=== PATIENT | male | born 1960 | race African-American/Black ===

== ENCOUNTER 2017-01-14 10:57 | Inpatient (IN) ==
[2017-01-14] MEDS ORDERED: 0.9 % Sodium Chloride 1,000 ML ONE (11:35)
--- NOTE | 2017-01-14 12:10 | Emergency Department Note ---
Disposition Clinical Impression: Cough, End stage renal disease Leukocytosis Qualifiers: Leukocytosis type: unspecified Qualified Code(s): D72.829 - Elevated white blood cell count, unspecified Disposition: Admitted As Inpatient General Adult HPI - General Chief complaint: ED Recheck/Abnormal Lab/Rx Stated complaint: ELEVATED WBC Time Seen by Provider: 01/14/17 11:12 Source: other Nursing Notes Reviewed: Yes Vital Signs Reviewed: Yes - History of Present Illness HPI Narrative: Patient presents because he was getting a permacath placed and they checked a blood count and found that his white blood cell count was high. not able to give adequate history secondary to his medical condition. He is not sure why he is here. He denies any pain or fevers or vomiting. Pain Scale: 0 - Related Data Home Medications Medication Instructions Recorded Confirmed Acetaminophen [Tylenol] 650 mg GTUBE Q6HR PRN 01/06/17 01/14/17 Budesonide Neb [Pulmicort Neb] 0.5 mg IH BIDR 01/06/17 01/14/17 Carvedilol 12.5 mg GTUBE BID 01/06/17 01/14/17 Ergocalciferol (VITAMIN D2) 50,000 unit GTUBE TH 01/06/17 01/14/17 [Vitamin D2] GuaiFENesin Liq [Robitussin Liq] 200 mg GTUBE Q8H 01/06/17 01/14/17 Insulin Glargine [Lantus] 10 units SQ HS 01/06/17 01/14/17 Insulin Human Regular [HumuLIN R] 2 units SQ Q6H 01/06/17 01/14/17 LORazepam [Ativan] 0.5 mg PO Q8H PRN 01/06/17 01/14/17 Ondansetron HCl [Ondansetron HCl] 4 mg GTUBE Q6H PRN 01/06/17 01/14/17 Quetiapine Fumarate [Seroquel] 50 mg GTUBE HS 01/06/17 01/14/17 B Complex C No.10/Folic Acid 900 mcg GTUBE DAILY 01/14/17 01/14/17 [Nephronex Liquid] LORazepam [Ativan] 0.5 mg GTUBE Q8H PRN 01/14/17 01/14/17 LevETIRAcetam [Keppra] 500 mg GTUBE BID 01/14/17 01/14/17 Nut.tx.impaired Renal Fxn,Soy 237 ml GTUBE QID 01/14/17 01/14/17 [Novasource Renal 2 Jose] Oxygen 2 l NS AD 01/14/17 01/14/17 Allergies Allergy/AdvReac Type Severity Reaction Status Date / Time No Known Allergies Allergy Verified 01/06/17 01:02 Review of Systems: Unable to obtain secondary to medical condition Past Medical History - Past Medical History Medical history: Reports: diabetes, hypertension, renal disease, seizures, other Psychiatric history: Reports: anxiety - Social History Smoking Status: Former smoker Smokeless Tobacco Status: No Alcohol use: Reports: none Drug use: Reports: cocaine Physical Exam CONSTITUTIONAL: Alert, thin, breathing comfortably, does have thick sputum in the trach mask but he is not HEAD: Normocephalic; atraumatic. EYES: PERRL, no scleral icterus. NOSE: The nose is normal in appearance without rhinorrhea RESP: Normal chest excursion with respiration; breath sounds with moderate bilateral crackles which are symmetric, no wheezing CARD: Regular rhythm, without murmurs, rub or gallop ABD: Non-distended; non-tender, soft,without rigidity, rebound or guarding SKIN: Normal for age and race; warm and dry; no apparent lesions,I did roll the patient over and there are no signs of sacral or gluteal decubitus ulcerations extremities: No foot ulcerations or leg ulcerations or signs of infection. No erythema or signs of cellulitis - General General appearance: alert Course Vital Signs Temperature 98.4 F 01/14/17 10:58 Pulse Rate 84 01/14/17 10:58 Respiratory Rate 18 01/14/17 10:58 Blood Pressure 123/67 01/14/17 10:58 O2 Sat by Pulse Oximetry 100 01/14/17 10:58 Temperature 98.3 F 01/14/17 21:06 Pulse Rate 81 01/14/17 21:06 Respiratory Rate 16 01/14/17 22:13 Blood Pressure 105/68 01/14/17 21:06 O2 Sat by Pulse Oximetry 100 01/14/17 22:13 Oxygen Delivery Oxygen Delivery Nasal Cannula Medical Decision Making - MDM Narrative Medical decision making narrative: The patient does have labs ordered looking sepsis with elevated white blood cell count. He does have thick secretions and this may represent pulmonary process. He is on supplemental oxygen with a saturation of 100%. 1210 I did review the patient's labs and x-ray findings. He is admitted to the hospital. I did speak with the hospitalist who accepts him for admission. I did placement Zosyn and vancomycin for the thick pulmonary secretions. - Medical Records Medical records reviewed: Yes I reviewed the patient's medical records. - Lab Data Lab results reviewed: Yes I reviewed the patient's lab results. Result diagrams: 01/14/17 12:01/14/17 12: Lab Results 01/14/17 01/14/17 01/14/17 Range/Units 12: 12: 12: WBC 30.9 H* (4.3-11.1) K/mcL RBC 3.55 L (4.19-5.50) M/mcL Hgb 8.5 L (12.9-16.9) g/dL Hct 27.1 L (37.5-50.1) % MCV 76.3 L (83.0-100.0) fL MCH 23.9 L (28.0-33.3) pg MCHC 31.4 L (31.6-35.5) g/dL RDW 16.6 H (11.5-14.5) % Plt Count 338 (140-400) K/mcL MPV 10.5 (9.4-12.4) fL Immature Gran % 2.2 (0-4) % Seg Neutrophils % 86.6 % Lymphocytes % 5.6 % Monocytes % 4.9 % Eosinophils % 0.4 % Basophils % 0.3 % Neutrophils # 26.8 H (1.6-8.9) K/mcL Lymphocytes # 1.7 (0.6-4.6) K/mcL Monocytes # 1.5 H (0.0-1.3) K/mcL Eosinophils # 0.1 (0.0-0.6) K/mcL Basophils # 0.1 (0.0-0.2) K/mcL PT 11.2 (9.4-12.1) Seconds INR 1.0 Sodium 134 L (136-145) mEq/L Potassium 3.7 (3.5-4.5) mEq/L Chloride 97 L (98-109) mEq/L Carbon Dioxide 27 (19-29) mEq/L BUN 61 H (8-26) mg/dL Creatinine 2.51 H (0.72-1.25) mg/dL Est GFR ( Amer) 33 L (> 60) Est GFR (Non-Af Amer) 27 L (> 60) BUN/Creatinine Ratio 24 (6-26) Glucose 271 H (70-99) mg/dL Est Mean Plasma Glucose mg/dl Hemoglobin A1c ( - 5.6) % Calculated Osmolality 305 H (280-300) Lactic Acid (0.5-2.2) mmol/L Calcium 9.2 (8.6-10.8) mg/dL Magnesium 2.1 (1.6-2.6) mg/dL Total Bilirubin 0.2 (0.2-1.2) mg/dL Direct Bilirubin 0.1 (0.0-0.5) mg/dL Indirect Bilirubin 0.1 (0.0-1.2) mg/dL AST 60 H (5-34) Units/L ALT 25 (0-55) Units/L Alkaline Phosphatase 119 (38-126) Units/L C-Reactive Protein 158 H (Less than 5) mg/L Serum Total Protein 7.2 (6.0-8.3) g/dL Albumin 2.0 L (3.5-5.0) g/dL Globulin 5.2 H (2.4-3.5) g/dL Albumin/Globulin Ratio 0.4 L (1.1-2.2) 01/14/17 01/14/17 01/14/17 Range/Units 12:01 12:01 13:36 WBC (4.3-11.1) K/mcL RBC (4.19-5.50) M/mcL Hgb (12.9-16.9) g/dL Hct (37.5-50.1) % MCV (83.0-100.0) fL MCH (28.0-33.3) pg MCHC (31.6-35.5) g/dL RDW (11.5-14.5) % Plt Count (140-400) K/mcL MPV (9.4-12.4) fL Immature Gran % (0-4) % Seg Neutrophils % % Lymphocytes % % Monocytes % % Eosinophils % % Basophils % % Neutrophils # (1.6-8.9) K/mcL Lymphocytes # (0.6-4.6) K/mcL Monocytes # (0.0-1.3) K/mcL Eosinophils # (0.0-0.6) K/mcL Basophils # (0.0-0.2) K/mcL PT (9.4-12.1) Seconds INR Sodium (136-145) mEq/L Potassium (3.5-4.5) mEq/L Chloride (98-109) mEq/L Carbon Dioxide (19-29) mEq/L BUN (8-26) mg/dL Creatinine (0.72-1.25) mg/dL Est GFR ( Amer) (> 60) Est GFR (Non-Af Amer) (> 60) BUN/Creatinine Ratio (6-26) Glucose (70-99) mg/dL Est Mean Plasma Glucose 157 mg/dl Hemoglobin A1c 7.1 H ( - 5.6) % Calculated Osmolality (280-300) Lactic Acid 1.2 1.0 (0.5-2.2) mmol/L Calcium (8.6-10.8) mg/dL Magnesium (1.6-2.6) mg/dL Total Bilirubin (0.2-1.2) mg/dL Direct Bilirubin (0.0-0.5) mg/dL Indirect Bilirubin (0.0-1.2) mg/dL AST (5-34) Units/L ALT (0-55) Units/L Alkaline Phosphatase (38-126) Units/L C-Reactive Protein (Less than 5) mg/L Serum Total Protein (6.0-8.3) g/dL Albumin (3.5-5.0) g/dL Globulin (2.4-3.5) g/dL Albumin/Globulin Ratio (1.1-2.2) - Radiology Data Radiology results reviewed: Yes I reviewed the patient's radiology results. Guidance Needle Placement Ultrasound 01/14/17 00:00 IMPRESSION: 1. Right internal jugular vein temporary dialysis catheter placement as discussed above. D/ / Clarence Ayers MD / Clarence Ayers MD Interpreting Provider: Clarence Ayers MD Insertion Non-Tunneled Catheter 01/14/17 00:00 IMPRESSION: 1. Right internal jugular vein temporary dialysis catheter placement as discussed above. D/ / Clarence Ayers MD / Clarence Ayers MD Interpreting Provider: Clarence Ayers MD Vena Cavagram, [place] 01/14/17 00:00 IMPRESSION: 1. Right internal jugular vein temporary dialysis catheter placement as discussed above. D/ / Clarence Ayers MD / Clarence Ayers MD Interpreting Provider: Clarence Ayers MD Chest X-Ray 01/14/17 11:33 IMPRESSION: No acute cardiopulmonary process. D/ / 01/14/2017 13:07:33 Nisha Rosenbaum MD / Karen Hernandez Interpreting Provider: Nisha Rosenbaum MD
[2017-01-14 12:12] LABS: Basophils # 0.1 K/mcL (0.0-0.2); Basophils % 0.3 %; Eosinophils # 0.1 K/mcL (0.0-0.6); Eosinophils % 0.4 %; Hematocrit 27.1 % (37.5-50.1); Hemoglobin 8.5 g/dL (12.9-16.9); Immature Granulocytes % 2.2 % (0-4); Lymphocytes # 1.7 K/mcL (0.6-4.6); Lymphocytes % 5.6 %; Mean Corpuscular HGB Conc 31.4 g/dL (31.6-35.5); Mean Corpuscular Hemoglobin 23.9 pg (28.0-33.3); Mean Corpuscular Volume 76.3 fL (83.0-100.0); Mean Platelet Volume 10.5 fL (9.4-12.4); Monocytes # 1.5 K/mcL (0.0-1.3); Monocytes % 4.9 %; Platelet Count 338 K/mcL (140-400); Red Blood Count 3.55 M/mcL (4.19-5.50); Red Cell Distribution Width 16.6 % (11.5-14.5); Segmented Neutrophils % 86.6 %
[2017-01-14 12:13] LABS: Neutrophils # 26.8 K/mcL (1.6-8.9)
[2017-01-14 12:15] LABS: Prothrombin Time 11.2 Seconds (9.4-12.1)
[2017-01-14 12:25] LABS: Albumin/Globulin Ratio 0.4 (1.1-2.2); Bilirubin,Direct 0.1 mg/dL (0.0-0.5); Bilirubin,Indirect 0.1 mg/dL (0.0-1.2); Bilirubin,Total 0.2 mg/dL (0.2-1.2); Calcium 9.2 mg/dL (8.6-10.8); Globulin 5.2 g/dL (2.4-3.5); Magnesium 2.1 mg/dL (1.6-2.6); Potassium 3.7 mEq/L (3.5-4.5); Total Protein 7.2 g/dL (6.0-8.3)
[2017-01-14] MEDS ORDERED: Piperacillin/Tazobactam 4.5 GM in D5% in Water (Mini-Bag+) 100 ML IVPB ONE (14:23)
[2017-01-14] MEDS ORDERED: Vancomycin 1,000 MG in D5% in Water 250 ML IVPB ONE (14:37)
[2017-01-14] MEDS ORDERED: Vancomycin 1 EACH in D5% in Water 250 ML IVPB SCH (15:00)
[2017-01-14] MEDS ORDERED: D5% in Water 1,000 ML IVC PRN (16:16)
[2017-01-14] MEDS ORDERED: *HR* Dextrose 50 % in Water (Syg) 50 ML SYRINGE IVP PRN (16:16)
[2017-01-14] MEDS ORDERED: Dextrose Gel 15 GM PO PRN ×2 (16:16)
[2017-01-14] MEDS ORDERED: *HR* LORazepam Oral Conc 2 MG/ML GTUBE PRN (16:19)
[2017-01-14] MEDS ORDERED: Acetaminophen 325 MG TABLET PO PRN (16:19)
[2017-01-14] MEDS ORDERED: Ondansetron Oral Soln 2 MG/2.5 ML ORAL.SYG GTUBE PRN (16:19)
[2017-01-14] MEDS ORDERED: NON-FORMULARY MEDICATION 1 EACH EACH (Oxygen [Oxygen] 2 L) NS SCH (16:30)
--- NOTE | 2017-01-14 16:41 | Internal Med History&Physical ---
Date of Encounter: 01/14/17 Time of Encounter: 15:30 Assessment and Plan (1) Sepsis Current visit: Yes Status: Acute Assess: Patient presents from the ED on 01/14/17 for permacath placement. When WBC checked, it was 30,000. Patient has suspected infection of unknown origin and Cr = 2.51. Sepsis protocol being followed. Plan: IV Zosyn 2.25/Q8 due to renal impairment IV Vancomycin to be dosed by pharmacy U/A ordered Blood cultures ordered Sputum culture ordered Continue O2 via trach mask Monitor vital signs Qualifiers: Sepsis type: sepsis due to unspecified organism Qualified Code(s): A41.9 - Sepsis, unspecified organism (2) Stage 4 chronic kidney disease Current visit: Yes Status: Chronic Assess: Patient presents with GFR of 27 and is in stage IV chronic kidney failure. Plan: Temporary dialysis catheter placed due to current leukocytosis Nephrology consult ordered and confirmed Continue to monitor patient's vital signs and output Assess for pain and continue pain medication PRN (3) Tracheostomy care Current visit: Yes Status: Acute Assess: Patient presents with tracheostomy in place. Plan: Continue O2 via tracheostomy mask Tracheostomy care ordered Q8 Monitor O2 saturation Monitor vital signs (4) Diabetes Current visit: Yes Status: Chronic Assess: Patient presents with history of insulin-dependent diabetes. Plan: NPO diet due to current medical status Low-dose insulin correction dosing ordered Hypoglycemia protocol ordered Monitor blood glucose levels Qualifiers: Diabetes mellitus type: type 1 Diabetes mellitus complication status: with unspecified complications Qualified Code(s): E10.8 - Type 1 diabetes mellitus with unspecified complications (5) Hypertension Current visit: Yes Status: Chronic Assess: Patient presents with history of HTN. Plan: Continue Carvedilol Monitor vital signs Qualifiers: Hypertension type: essential hypertension Qualified Code(s): I10 - Essential (primary) hypertension (6) Anemia Current visit: Yes Status: Chronic Assess: Patient presents with chronic anemia related to kidney failure. Plan: Continue Darbepoetin Barrett Continue Renal-sruthi tablet Continue O2 via trach mask CBC follow-up ordered Qualifiers: Anemia type: unspecified type Qualified Code(s): D64.9 - Anemia, unspecified (7) Seizures Current visit: Yes Status: Chronic Assess: Patient presents with history of seizures. Plan: Follow sepsis protocol Continue Roweepra Continue O2 via trach mask Monitor patient and vital signs (8) DVT prophylaxis Current visit: Yes Status: Acute Assess: Patient to receive DVT prophylaxis due to bed-ridden status and HTN. Plan: Anti-embolic stockings to be placed bilaterally Internal Medicine - H&P: HPI Chief complaint: Sepsis Admitted From: Emergency Dept Plans for Post Hospital Care: Transfer Historical Records Administrator Care History of present illness: Mr. Gonzalez is a 56 year old male who presents from the ED on 01/14/17. Patient was scheduled for permacath placement. When WBC checked, it was 30,000. Patient is unable to give history or information secondary to his medical condition. Patient is a former smoker with a health history of diabetes (insulin-controlled ), HTN, Stage IV renal disease, and seizures. Patient also has a history of anxiety. Patient has suspected infection of unknown origin, elevated WBC (30,000 ) and Cr of 2.51. We are following sepsis protocol. Patient started on IV Vancomycin and Zosyn in the ED. Patient to be admitted as inpatient status. We will continue IV Zosyn at 2.25 Q* due to renal impairment and IV Vancomycin to be pharmacy-dosed. U/A and blood cultures ordered in ED. Sputum culture and APTT ordered. Nephrology consult ordered for possible dialysis. Past Med Surg Social Fam HX - Past Medical History Medical history: non-contributory (Patient is currently non-contributory on health history or information secondary to medical condition.), diabetes, hypertension, renal disease, seizures, other Psychiatric history: anxiety - Past Surgical History Surgical History: non-contributory - Social History Smoking Status: Former smoker Smokeless Tobacco Status: No Alcohol use: none Drug use: cocaine Current [facility] situation: [facility] Activity Level: Mostly sedentary Recent Out of Country Travel Within the Last 8 Weeks: No Exposure or Possible Exposure to Illness During Travel: No Internal Medicine - H&P: Meds Acetaminophen [Tylenol] 650 mg GTUBE Q6HR PRN 01/06/17 [History] Budesonide Neb [Pulmicort Neb] 0.5 mg IH BIDR 01/06/17 [History] Carvedilol 12.5 mg GTUBE BID 01/06/17 [History] Ergocalciferol (VITAMIN D2) [Vitamin D2] 50,000 unit GTUBE TH 01/06/17 [History] GuaiFENesin Liq [Robitussin Liq] 200 mg GTUBE Q8H 01/06/17 [History] Insulin Glargine [Lantus] 10 units SQ HS 01/06/17 [History] Insulin Human Regular [HumuLIN R] 2 units SQ Q6H 01/06/17 [History] LORazepam [Ativan] 0.5 mg PO Q8H PRN 01/06/17 [History] Ondansetron HCl [Ondansetron HCl] 4 mg GTUBE Q6H PRN 01/06/17 [History] Quetiapine Fumarate [Seroquel] 50 mg GTUBE HS 01/06/17 [History] B Complex C No.10/Folic Acid [Nephronex Liquid] 900 mcg GTUBE DAILY 01/14/17 [ History] LORazepam [Ativan] 0.5 mg GTUBE Q8H PRN 01/14/17 [History] LevETIRAcetam [Keppra] 500 mg GTUBE BID 01/14/17 [History] Nut.tx.impaired Renal Fxn,Soy [Novasource Renal 2 Jose] 237 ml GTUBE QID [History] Oxygen 2 l NS AD 01/14/17 [History] Allergies No Known Allergies Allergy (Verified 01/06/17 01:02) ROS unobtainable: due to mental status All Systems PM: A 10-system review of systems was performed and is negative for pertinent findings except as documented above in the HPI. - Constitutional Vitals: Temp Pulse Resp BP Pulse Ox 97.6 F 85 16 123/75 95 01/14/17 16:26 01/14/17 16:26 01/14/17 16:26 01/14/17 16:26 01/14/17 16:28 Exam: Patient is non-contributory secondary to medical condition. Patient is also agitated when addressed or examined. Physical exam conducted as completely as allowed. - Head Head exam: Present: atraumatic, normocephalic - Eye Additional comments: Patient's eye exam deferred due to agitation. - ENT Additional comments: Patient's ENT exam deferred due to agitation. - Neck Neck exam general surgery: Present: normal inspection, trachea midline - Respiratory Respiratory exam: Present: decreased breath sounds Additional comments: Crackles present bilaterally. Patient's breathing unlabored but shallow. - Cardiovascular Cardiovascular exam: Present: RRR, +S1, +S2. Absent: diastolic murmur, gallop, rubs, systolic murmur - GI/Abdominal GI/Abdominal exam: Present: normal bowel sounds, soft, no peritoneal signs. Absent: distended, tenderness - Rectal Rectal exam: Present: deferred - Additional comments: exam deferred due to patient's agitiation. - Extremities Exam Extremities exam: Present: normal capillary refill, warm, radial pulses palpable and symetrical Additional comments: Patient has older sores on lower legs below the knees bilaterally. Sores appear to be older and have scabbed over. Minor bruising as well on lower legs bilaterally. - Back Exam Additional comments: Back exam deferred due to patient's agitation. - Neurological Exam Neurological exam: Present: altered - Psychiatric Psychiatric exam: Present: agitated - Skin Skin exam: Present: dry, warm Additional comments: Patient has older sores present on lower legs below the knees bilaterally that have scabbed over. Minor bruising is present as well bilaterally on lower legs. Internal Med - H&P Results - Labs CBC & Chem 7: 01/14/17 12:01 01/14/17 12:01 Labs: Patient's WBC is 30,000 and sepsis protocol is being followed. IV Vancomycin ( pharmacy-dosed) and IV Zosyn (2.25/Q8) ordered. U/A, blood cultures, and sputum culture also ordered. - Diagnostic Studies Chest x-ray Additional comments: 1 View CXR dated 01/14/17 shows monitor wires overlying chest and tracheostomy tube. Trachea is midline and cardiac silhouette is unremarkable. Lungs clear with no pleural fluid.
[2017-01-14] MEDS ORDERED: Piperacillin/Tazobactam 3.375 GM in D5% in Water (Mini-Bag+) 100 ML IVPB SCH (17:00)
[2017-01-14] MEDS ORDERED: Vancomycin 1,000 MG in D5% in Water 250 ML IVPB SCH (17:00)
[2017-01-14 17:02] LABS: Hemoglobin A1C 7.1 %
[2017-01-14] MEDS ORDERED: Piperacillin/Tazobactam 2.25 GM in D5% in Water (Mini-Bag+) 100 ML IVPB SCH (17:22)
--- NOTE | 2017-01-14 17:26 | Event Note ---
Date of Encounter: 01/14/17 Time of Encounter: 17:23 patient seen and examined with nurse practitioner[place] [address] [place] he was here after he pulled the perme cath. He has thick yellowish sputum , no clear infilterate on Xray. [place] cultures and broad spectrum antibiotics. Plan to get prior records to see his baseline WBC. He is hemodynamically stable. Temporary catheter placed for dialysis today
[2017-01-14] MEDS: Insulin LISPRO 300 UNITS/3 ML VIAL SQ SCH (17:49)
[2017-01-14] MEDS: Piperacillin/Tazobactam 3.375 GM in D5% in Water (Mini-Bag+) 100 ML IVPB SCH ×2 (17:50→23:43)
[2017-01-14] MEDS: GuaiFENesin Liq 200 MG/10 ML UDC GTUBE SCH (18:10)
[2017-01-14] MEDS: levETIRAcetam 500 MG/5 ML UDC GTUBE SCH (22:07)
[2017-01-14] MEDS: Budesonide Neb 0.5 MG/2 ML IH SCH (22:10)
[2017-01-15] MEDS: Insulin LISPRO 300 UNITS/3 ML VIAL SQ SCH ×5 (02:43→23:40)
[2017-01-15] MEDS: GuaiFENesin Liq 200 MG/10 ML UDC GTUBE SCH ×4 (02:43→23:11)
[2017-01-15] MEDS: Piperacillin/Tazobactam 3.375 GM in D5% in Water (Mini-Bag+) 100 ML IVPB SCH ×2 (04:06→09:01)
[2017-01-15 04:55] LABS: Basophils # 0.1 K/mcL (0.0-0.2); Basophils % 0.3 %; Eosinophils # 0.3 K/mcL (0.0-0.6); Eosinophils % 1.2 %; Hematocrit 26.8 % (37.5-50.1); Hemoglobin 8.4 g/dL (12.9-16.9); Immature Granulocytes % 0.9 % (0-4); Lymphocytes # 2.2 K/mcL (0.6-4.6); Lymphocytes % 10.6 %; Mean Corpuscular HGB Conc 31.3 g/dL (31.6-35.5); Mean Corpuscular Hemoglobin 23.9 pg (28.0-33.3); Mean Corpuscular Volume 76.1 fL (83.0-100.0); Mean Platelet Volume 11.1 fL (9.4-12.4); Monocytes # 1.1 K/mcL (0.0-1.3); Monocytes % 5.4 %; Neutrophils # 16.8 K/mcL (1.6-8.9); Platelet Count 371 K/mcL (140-400); Red Blood Count 3.52 M/mcL (4.19-5.50); Red Cell Distribution Width 16.5 % (11.5-14.5); Segmented Neutrophils % 81.6 %
[2017-01-15] MEDS ORDERED: 0.9 % Sodium Chloride 250 ML IVC PRN (08:41)
[2017-01-15] MEDS ORDERED: 0.9 % Sodium Chloride 1,000 ML PRIME SCH (08:45)
[2017-01-15] MEDS: levETIRAcetam 500 MG/5 ML UDC GTUBE SCH ×2 (09:03→23:07)
[2017-01-15] MEDS ORDERED: *HR* Heparin 10,000 UNIT/10 ML VIAL IV PRN ×2 (09:03→09:48)
[2017-01-15] MEDS: [UNRECOGNIZED DRUG - REMARK] GTUBE SCH (09:04)
[2017-01-15] MEDS ORDERED: 0.9 % Sodium Chloride 2,000 ML ONE (09:20)
--- NOTE | 2017-01-15 10:06 | Internal Med Progress Note ---
Date of Encounter: 01/15/17 Time of Encounter: 10:06 - Assessment and plan (1) SIRS (systemic inflammatory response syndrome) Current Visit: Yes Status: Acute Assessment and plan: patient with leukocytosis No fever, no tachycardia, BP is WNL for patient We do not have a source of infection as at yet CXR has been done twice and negative Leukocytosis of 33.9, improved to 20.6 this a.m Patient may have a Uti, he does not make urine Blood cultures have been sent and pending Will continue empiric antibiotics for now Mita to patient complaining of increased secretions per chart review, suspect respiratory source Patient is full code (2) Leukocytosis Current Visit: Yes Status: Acute Assessment and plan: as above Qualifiers: Leukocytosis type: unspecified Qualified Code(s): D72.829 - Elevated white blood cell count, unspecified (3) Diabetes Current Visit: Yes Status: Chronic Assessment and plan: Consult nutrition/state's attorney for PEG tube management Monitor FS q4-Q6 for now Qualifiers: Diabetes mellitus type: type 1 Diabetes mellitus complication status: with unspecified complications Qualified Code(s): E10.8 - Type 1 diabetes mellitus with unspecified complications (4) Hypertension Current Visit: Yes Status: Chronic Assessment and plan: Continue home meds Qualifiers: Hypertension type: essential hypertension Qualified Code(s): I10 - Essential (primary) hypertension (5) Seizures Current Visit: Yes Status: Chronic Assessment and plan: Continue home meds (6) End stage renal disease Current Visit: Yes Status: Acute Assessment and plan: Renal following, appreciate input (7) Anemia Current Visit: Yes Status: Chronic Assessment and plan: ACD, management per renal with PAULINA Qualifiers: Anemia type: unspecified type Qualified Code(s): D64.9 - Anemia, unspecified - Subjective Interval history: Initial encounter 56-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, s/p PEG and Trach, halfway resident with h/o HTN, DM type II, ESRD, seizures Admitted due to incidental finding of leukocytosis and suspicion for pneumonia due to increased trach secretions Patient is seen at bedside during hemodialysis He denies new complains Today is day 2 on vanco and zosyn - Constitutional Vitals: Temp Pulse Resp BP Pulse Ox 98.5 F 84 16 103/58 100 01/15/17 07:00 01/15/17 07:00 01/15/17 07:00 01/15/17 07:00 01/15/17 10:03 General appearance: Absent: answers questions appropriately - Head Head exam: Present: atraumatic, normocephalic - Eye Eye exam: Present: PERRL, conjuntiva pink, sclera anicteric Pupils: Present: PERRL - Neck Neck exam general surgery: Absent: lymphadenopathy Additional comments: Tracheostomy with greenish secretions - Respiratory Additional comments: Bilateral coarse breath sound Anterior auscultation only possible due to patient's condition - Cardiovascular Cardiovascular exam: Present: RRR, +S1, +S2. Absent: diastolic murmur, gallop, rubs, systolic murmur - GI/Abdominal GI/Abdominal exam: Present: normal bowel sounds, soft, no peritoneal signs. Absent: distended, tenderness Additional comments: PEG tube site clean and dry - Extremities Exam Extremities exam: Present: warm, radial pulses palpable and symetrical. Absent : calf tenderness, cyanotic, pedal edema - Neurological Exam Neurological exam: Present: CN II-XII intact, oriented X3, speech deficit. Absent: no focal deficits, pronater drift, facial droop - Skin Skin exam: Present: dry Internal Medicine: Result - Labs CBC & Chem 7: 01/15/17 03:40 01/14/17 12:01 Labs: Short CBC 01/15/17 Range/Units 03:40 WBC 20.6 H (4.3-11.1) K/mcL Hgb 8.4 L (12.9-16.9) g/dL Hct 26.8 L (37.5-50.1) % Plt Count 371 (140-400) K/mcL Neutrophils # 16.8 H (1.6-8.9) K/mcL - ABG Interpretation ABG results: PT/INR, D-dimer PT 11.2 Seconds (9.4-12.1) 01/14/17 12:01 - Impressions Impressions Chest X-Ray 01/15/17 09:27 IMPRESSION: Low lung volumes. No acute cardiopulmonary disease. D/ / Bradford Garcia MD / Bradford Garcia MD Interpreting Provider: Bradford Garcia MD - VTE Documentation of Mechanical Device: Graduated compression elastic hosiery Consult Discharge Plan - Plan Referrals: Matheus Vasquez MD [Primary Care Provider] - (Doctor will follow up with patient at the [facility])
[2017-01-15] MEDS: Budesonide Neb 0.5 MG/2 ML IH SCH ×2 (10:16→21:38)
--- NOTE | 2017-01-15 10:39 | Nephrology Consult Note ---
Date of Encounter: 01/15/17 Time of Encounter: 10:09 Assessment and Plan (1) End stage renal disease Current Visit: Yes Status: Acute ESRD; Currently has temporary right IJ catheter. Plan for dialysis today Details of previous hospital admission are not available. f/u renal panel, monitor for Renal recovery Leukocytosis; white count is trending down. Suspect has bronchitis Informed nurse to obtain UA and C&S. f/u blood cultures Anemia of chronic disease. resume out dose of procrit HTN, BP is stable, cont coreg History of Present Illness - Reason for Consult end stage renal disease - Chief Complaint esrd - History of Present Illness 56-year-old AA male, [facility] resident with h/o HTN, DM type II, ESRD, seizures and Trach. The permanent dialysis catheter was noted to have fallen out when he was at the outpatient dialysis unit yesterday. He was sent to interventional radiology for placement of a new one. White count was noted to be elevated at 30,000, a temporary IJ dialysis catheter was placed and admitted for further management. Chest x-ray was negative for pneumonia. Zosyn and vancomycin were started empirically As per pt trach tube was placed and dialysis was started couple of months ago during a hospital admission. Previous records are not available for review. He makes some urine but is incontinent. Noted to have increased thick respiratory secretions from the tracheostomy tube Past Med Surg Social Fam HX - Past Medical History Medical history: diabetes, hypertension, renal disease, seizures, other Psychiatric history: anxiety - Past Surgical History Surgical History: non-contributory - Social History Smoking Status: Former smoker Smokeless Tobacco Status: No Alcohol use: none Drug use: cocaine Medications and Allergies Acetaminophen [Tylenol] 650 mg GTUBE Q6HR PRN 01/06/17 [History] Budesonide Neb [Pulmicort Neb] 0.5 mg IH BIDR 01/06/17 [History] Carvedilol 12.5 mg GTUBE BID 01/06/17 [History] Ergocalciferol (VITAMIN D2) [Vitamin D2] 50,000 unit GTUBE TH 01/06/17 [History] GuaiFENesin Liq [Robitussin Liq] 200 mg GTUBE Q8H 01/06/17 [History] Insulin Glargine [Lantus] 10 units SQ HS 01/06/17 [History] Insulin Human Regular [HumuLIN R] 2 units SQ Q6H 01/06/17 [History] LORazepam [Ativan] 0.5 mg PO Q8H PRN 01/06/17 [History] Ondansetron HCl [Ondansetron HCl] 4 mg GTUBE Q6H PRN 01/06/17 [History] Quetiapine Fumarate [Seroquel] 50 mg GTUBE HS 01/06/17 [History] B Complex C No.10/Folic Acid [Nephronex Liquid] 900 mcg GTUBE DAILY 01/14/17 [ History] LORazepam [Ativan] 0.5 mg GTUBE Q8H PRN 01/14/17 [History] LevETIRAcetam [Keppra] 500 mg GTUBE BID 01/14/17 [History] Nut.tx.impaired Renal Fxn,Soy [Novasource Renal 2 Jose] 237 ml GTUBE QID [History] Oxygen 2 l NS AD 01/14/17 [History] Allergies No Known Allergies Allergy (Verified 01/06/17 01:02) Review of Systems All Systems review (narrative): Denies pain. On 2 L of oxygen via the trach tube. [facility]. Has a PEG tube. He is alert and responding to questions. Unable to get a detailed review of symptoms as he has trach Exam - Vital Signs Vital signs: Initial Vital Signs Temp Pulse Resp BP Pulse Ox 98.4 F 84 18 123/67 100 01/14/17 10:58 01/14/17 10:58 01/14/17 10:58 01/14/17 10:58 01/14/17 10:58 Vital Signs - Last 8 Hours Temp Pulse Resp BP Pulse Ox 01/15/17 10:03 100 01/15/17 09:14 99 01/15/17 09:12 99 01/15/17 07:00 98.5 F 84 16 103/58 95 01/15/17 04:00 98.2 F 87 16 101/67 100 Intake and Output 01/14/17 01/15/17 01/15/17 23:59 07:59 15:59 Intake Total 100 / 100 0 / 0 151 / 151 Balance 100 / 100 0 / 0 151 / 151 Intake: IV Fluids 100 / 100 101 / 101 Zosyn 3.375 GM In 100 / 100 101 / 101 Dextrose 5% (Minibag+) 100 ML 100 ML @ 25 mls/hr IVPB Q8H [facility] Rx#: [id number] Oral 0 / 0 Free Water Intake Amount 50 / 50 Other: # Voids 1 # Urine Diapers 1 1 Weight 61.8 kg Blood Glucose* 158 130 Patient Weight 01/15/17 23:59 Weight 61.8 kg - General Appearance Exam: HENT; there is pallor, no icterus NECK; supple, no JVD, no lymphadenopathy CVS; s1s2 present, regular, no murmurs RESP; good air entry, clear to auscultation anteriorly ABD; soft, NT, BS present, no organomegaly, no bruits PEG tube present EXT; no edema, DP pulses palpable. EMPLOYMENT LAW SPECIALIST; alert oriented, moving extremities spontaneously Results - Lab Results 01/15/17 03:40 01/14/17 12:01 Most recent lab results Calcium 9.2 mg/dL (8.6-10.8) 01/14/17 12:01 Magnesium 1.8 mg/dL (1.6-2.6) 01/15/17 03:40 Consult Discharge Plan - Plan Referrals: Matheus Vasquez MD [Primary Care Provider] -
[2017-01-16] MEDS ORDERED: Vancomycin 1,000 MG in D5% in Water 250 ML IVPB ONE
[2017-01-16 04:52] LABS: Basophils # 0.1 K/mcL (0.0-0.2); Basophils % 1.3 %; Eosinophils # 0.2 K/mcL (0.0-0.6); Eosinophils % 1.6 %; Hematocrit 26.7 % (37.5-50.1); Hemoglobin 8.2 g/dL (12.9-16.9); Immature Granulocytes % 0.3 % (0-4); Lymphocytes # 2.4 K/mcL (0.6-4.6); Lymphocytes % 25.9 %; Mean Corpuscular HGB Conc 30.7 g/dL (31.6-35.5); Mean Corpuscular Volume 78.1 fL (83.0-100.0); Mean Platelet Volume 10.7 fL (9.4-12.4); Monocytes # 0.7 K/mcL (0.0-1.3); Platelet Count 380 K/mcL (140-400); Red Blood Count 3.42 M/mcL (4.19-5.50); Red Cell Distribution Width 16.8 % (11.5-14.5); Segmented Neutrophils % 63.9 %
[2017-01-16 05:01] LABS: Neutrophils # 5.9 K/mcL (1.6-8.9)
[2017-01-16 05:08] LABS: Calcium 8.9 mg/dL (8.6-10.8); Phosphorous 2.6 mg/dL (2.3-4.7); Potassium 3.9 mEq/L (3.5-4.5)
[2017-01-16] MEDS: Insulin LISPRO 300 UNITS/3 ML VIAL SQ SCH ×3 (06:25→18:44)
[2017-01-16] MEDS: Piperacillin/Tazobactam 3.375 GM in D5% in Water (Mini-Bag+) 100 ML IVPB SCH ×2 (07:20→18:44)
[2017-01-16] MEDS: levETIRAcetam 500 MG/5 ML UDC GTUBE SCH ×2 (08:50→23:12)
[2017-01-16] MEDS: [UNRECOGNIZED DRUG - REMARK] GTUBE SCH (08:50)
[2017-01-16] MEDS: GuaiFENesin Liq 200 MG/10 ML UDC GTUBE SCH ×3 (08:50→23:12)
[2017-01-16] MEDS: Budesonide Neb 0.5 MG/2 ML IH SCH ×2 (10:34→20:58)
--- NOTE | 2017-01-16 11:37 | Internal Med Progress Note ---
Date of Encounter: 01/16/17 Time of Encounter: 11:37 - Assessment and plan (1) SIRS (systemic inflammatory response syndrome) Current Visit: Yes Status: Acute Assessment and plan: patient with leukocytosis No fever, no tachycardia, BP is WNL for patient We do not have a source of infection as at yet CXR has been done twice and negative Leukocytosis of 33.9-20.6-9.3 Patient may have a Uti, he does not make urine Blood cultures and sputum/trach secretion culture prelim negative, await final report Will continue empiric antibiotics for now Mita to patient complaining of increased secretions per chart review, suspect respiratory source Patient is full code Anticipate discharge after dialysis a.m if patient remains stable and culture results are finalized (2) Leukocytosis Current Visit: Yes Status: Acute Assessment and plan: as above Qualifiers: Leukocytosis type: unspecified Qualified Code(s): D72.829 - Elevated white blood cell count, unspecified (3) Diabetes Current Visit: Yes Status: Chronic Assessment and plan: Consult nutrition/case supervisor for PEG tube management Monitor FS q4-Q6 for now Qualifiers: Diabetes mellitus type: type 1 Diabetes mellitus complication status: with unspecified complications Qualified Code(s): E10.8 - Type 1 diabetes mellitus with unspecified complications (4) Hypertension Current Visit: Yes Status: Chronic Assessment and plan: Continue home meds Qualifiers: Hypertension type: essential hypertension Qualified Code(s): I10 - Essential (primary) hypertension (5) Seizures Current Visit: Yes Status: Chronic Assessment and plan: Continue home meds (6) End stage renal disease Current Visit: Yes Status: Chronic Assessment and plan: Renal following, appreciate input (7) Anemia Current Visit: Yes Status: Chronic Assessment and plan: ACD, management per renal with PAULINA Qualifiers: Anemia type: unspecified type Qualified Code(s): D64.9 - Anemia, unspecified - Subjective Interval history: 56-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, s/p PEG and Trach, [facility] resident with h/o HTN, DM type II, ESRD, seizures Admitted due to incidental finding of leukocytosis and suspicion for pneumonia due to increased trach secretions Patient is seen at bedside He denies new complains Today is day 3 on vanco and zosyn He remains afebrile Leukocytosis has resolved Blood and trach secretions culture prelim negative Feeding per PEG tube has commenced - Constitutional Vitals: Temp Pulse Resp BP Pulse Ox 98.3 F 80 16 155/81 100 01/16/17 11:05 01/16/17 11:05 01/16/17 11:05 01/16/17 11:05 01/16/17 11:05 General appearance: Present: A&O X 1, pleasant. Absent: answers questions appropriately - Head Head exam: Present: atraumatic, normocephalic - Eye Eye exam: Present: PERRL, conjuntiva pink, sclera anicteric Pupils: Present: PERRL - ENT Additional comments: Trach, very minimal secretions R CVC, dressing clean and dry - Neck Neck exam general surgery: Present: supple, trachea midline. Absent: lymphadenopathy Additional comments: Trached - Respiratory Respiratory exam: Present: CTAB. Absent: accessory muscle use, rales, rhonchi, wheezes - Cardiovascular Cardiovascular exam: Present: RRR, +S1, +S2. Absent: diastolic murmur, gallop, rubs, systolic murmur - GI/Abdominal GI/Abdominal exam: Present: normal bowel sounds, soft, no peritoneal signs. Absent: distended, tenderness Additional comments: PEG tube region clean and dry - Extremities Exam Extremities exam: Present: warm, radial pulses palpable and symetrical. Absent : calf tenderness, cyanotic, pedal edema Additional comments: Moves LE spontaneously and to commands - Neurological Exam Neurological exam: Present: alert (Follows commands), CN II-XII intact, speech deficit (due to trach). Absent: oriented X3, pronater drift, facial droop - Skin Skin exam: Present: dry Internal Medicine: Result - Labs CBC & Chem 7: 01/16/17 03:54 01/16/17 03:54 Labs: Short CBC 01/16/17 Range/Units 03:54 WBC 9.3 D (4.3-11.1) K/mcL Hgb 8.2 L (12.9-16.9) g/dL Hct 26.7 L (37.5-50.1) % Plt Count 380 (140-400) K/mcL Neutrophils # 5.9 (1.6-8.9) K/mcL BMP 01/16/17 03:54 Sodium 138 Potassium 3.9 Chloride 100 Carbon Dioxide 28 BUN 33 H D Creatinine 2.03 H Glucose 279 H Calcium 8.9 Liver Function 04/23/17 Range/Units 03:54 Albumin 2.0 L (3.5-5.0) g/dL - ABG Interpretation ABG results: PT/INR, D-dimer PT 11.2 Seconds (9.4-12.1) 01/14/17 12:01 - VTE Documentation of Mechanical Device: Graduated compression elastic hosiery Consult Discharge Plan - Plan Referrals: Matheus Vasquez MD [Primary Care Provider] - (Doctor will follow up with patient at the [facility])
--- NOTE | 2017-01-16 14:32 | Nephrology Progress Note ---
Date of Encounter: 01/16/17 Time of Encounter: 14:25 - Assessment and Plan (1) End stage renal disease Current Visit: Yes Status: Chronic ESRD. Pt was dialyzed yesterday via rt IJ temporary catheter. Serum creatinine is 2. Pt is intermittently incontinent of urine. Place a Hammer catheter for monitoring urine output. Follow-up renal panel in a.m. for any renal recovery Leukocytosis has resolved. Cultures negative to date. Continue empiric antibiotics. Anemia of chronic disease, resume Aranesp 25 g every Tuesday Bone metabolism. Check vitamin D level.. Patient currently on vitamin D 50,000 units every week Subjective Principal diagnosis: ESRD Interval history: Afebrile overnight. Resp secretion is slightly better. pt denies any pain. appears that UA was not done Objective - Vital Signs Vital signs: Vital Signs Temp Pulse Resp BP Pulse Ox 01/16/17 11:05 98.3 F 80 16 155/81 100 01/16/17 10:34 16 100 01/16/17 07:02 97.5 F L 80 16 132/73 100 01/16/17 03:24 98.1 F 67 16 132/84 98 01/15/17 23:19 97.8 F 89 18 147/81 96 01/15/17 21:47 18 100 01/15/17 20:15 98.1 F 87 18 111/68 97 01/15/17 15:03 98.9 F 73 16 107/63 95 Intake and Output 01/15/17 01/16/17 01/16/17 23:59 07:59 15:59 Intake Total 150 / 150 150 / 150 300 / 300 Balance 150 / 150 150 / 150 300 / 300 Intake: Free Water Intake Amount 150 / 150 150 / 150 300 / 300 Other: Meal NPO # Urine Diapers 1 Weight 62.8 kg Blood Glucose* 199 320 79 Patient Weight 01/16/17 23:59 Weight 62.8 kg - General Appearance Exam: CVS; s1s2 present, regular, no murmurs RESP; good air entry, clear anteriorly ABD; soft, NT, BS present, EXT; no edema, DP pulses palpable. - Lab 01/16/17 03:54 01/16/17 03:54 Most recent lab results Calcium 8.9 mg/dL (8.6-10.8) 01/16/17 03:54 Phosphorus 2.6 mg/dL (2.3-4.7) 01/16/17 03:54 Magnesium 1.8 mg/dL (1.6-2.6) 01/15/17 03:40 - VTE Documentation of Mechanical Device: Graduated compression elastic hosiery Consult Discharge Plan - Plan Referrals: Matheus Vasquez MD [Primary Care Provider] - (Doctor will follow up with patient at the [facility])
[2017-01-16] MEDS ORDERED: Darbepoetin 25 MCG/0.42 ML SYRINGE SQ SCH (14:45)
[2017-01-17] MEDS: Insulin LISPRO 300 UNITS/3 ML VIAL SQ SCH ×4 (03:38→18:18)
[2017-01-17] MEDS: Piperacillin/Tazobactam 3.375 GM in D5% in Water (Mini-Bag+) 100 ML IVPB SCH ×2 (07:07→17:59)
[2017-01-17] MEDS: levETIRAcetam 500 MG/5 ML UDC GTUBE SCH ×2 (08:03→23:35)
[2017-01-17] MEDS: GuaiFENesin Liq 200 MG/10 ML UDC GTUBE SCH ×3 (08:03→23:35)
[2017-01-17] MEDS: [UNRECOGNIZED DRUG - REMARK] GTUBE SCH (08:04)
--- NOTE | 2017-01-17 08:41 | Nephrology Progress Note ---
Date of Encounter: 01/17/17 Time of Encounter: 08:39 - Assessment and Plan (1) End stage renal disease Current Visit: Yes Status: Chronic Patient has a history of end-stage renal disease in the setting of acute kidney injury did fail to improve. His creatinine remains relatively low. He does have low muscle mass. It is difficult to follow his urine output because he is incontinent. I am going to hold his dialysis and monitor his creatinine level to see if he has any indication of renal recovery. For this reason and also because of the fact that he has no cultures positive for gram-positive organisms I will suggest discontinuing the vancomycin because it can be potentially nephrotoxic. (2) Anemia in chronic kidney disease (CKD) Current Visit: Yes Status: Acute (3) Seizures Current Visit: Yes Status: Chronic (4) Leukocytosis Current Visit: Yes Status: Acute Qualifiers: Leukocytosis type: unspecified Qualified Code(s): D72.829 - Elevated white blood cell count, unspecified Subjective Principal diagnosis: ESRD Interval history: Patient not to set in response to questions. He is in no acute distress. He is on a trach collar. Serum creatinine is 2.03 yesterday. The patient is reportedly incontinent. Urine output is therefore not adequately recorded. Hemoglobin is 8.2. Blood cultures are negative. Chest x-ray is negative. Sputum is growing gram-negative rods. Objective - Vital Signs Vital signs: Vital Signs Temp Pulse Resp BP Pulse Ox 01/17/17 07:21 97.4 F L 84 16 120/80 100 01/17/17 03:49 97.6 F 90 16 118/76 98 01/17/17 00:02 98.4 F 81 16 130/85 100 01/16/17 20:50 18 100 01/16/17 19:39 97.9 F 86 18 117/58 97 01/16/17 16:20 153/79 01/16/17 15:31 98.1 F 87 17 153/79 100 01/16/17 11:05 98.3 F 80 16 155/81 100 01/16/17 10:34 16 100 Intake and Output 01/16/17 01/17/17 01/17/17 23:59 07:59 15:59 Intake Total 400 / 400 150 / 150 Balance 400 / 400 150 / 150 Intake: IV Fluids 100 / 100 Zosyn 3.375 GM In 100 / 100 Dextrose 5% (Minibag+) 100 ML 100 ML @ 25 mls/hr IVPB Q12H [facility] Rx#: [id number] Free Water Intake Amount 300 / 300 150 / 150 Other: Meal NPO Weight 61.8 kg Blood Glucose* 291 263 Patient Weight 01/17/17 23:59 Weight 61.8 kg - General Appearance Exam: Patient is resting comfortably. He appears to be in no acute distress. Trach collars in place. Lungs diminished breath sounds. Heart regular rate and rhythm. Abdomen is soft. PEG tube is in place. Tube feedings are infusing. There is no peripheral edema. There is generalized muscular atrophy. There is a temporary dialysis catheter in the right internal jugular vein. - Lab 01/16/17 03:54 01/16/17 03:54 Most recent lab results Calcium 8.9 mg/dL (8.6-10.8) 01/16/17 03:54 Phosphorus 2.6 mg/dL (2.3-4.7) 01/16/17 03:54 Magnesium 1.8 mg/dL (1.6-2.6) 01/15/17 03:40 - VTE Documentation of Mechanical Device: Graduated compression elastic hosiery Consult Discharge Plan - Plan Referrals: Matheus Vasquez MD [Primary Care Provider] - (Doctor will follow up with patient at the [facility])
[2017-01-17] MEDS: Budesonide Neb 0.5 MG/2 ML IH SCH ×2 (09:13→20:56)
[2017-01-17 09:32] LABS: % Iron Saturation 22 % (20-55); Iron 39 mcg/dL (65-175); Transferrin 128 mg/dL (174-364)
[2017-01-17 09:52] LABS: Ferritin 797 ng/ml (22-275)
--- NOTE | 2017-01-17 10:57 | Internal Med Progress Note ---
Date of Encounter: 01/17/17 Time of Encounter: 10:55 - Assessment and plan (1) SIRS (systemic inflammatory response syndrome) Current Visit: Yes Status: Acute Assessment and plan: Secondary to bronchitis, as patient has no pneumonia on Xray but trach secretions gorwing GNR patient with leukocytosis No fever, no tachycardia, BP is WNL for patient CXR was done twice and negative Leukocytosis of 33.9-20.6-9.3 Patient may have a UTI, he is incontinent, UA has been ordered, pending Blood cultures preliminary negative sputum/trach secretion culture GNR Will continue Zosyn Patient is full code (2) Leukocytosis Current Visit: Yes Status: Acute Assessment and plan: as above Qualifiers: Leukocytosis type: unspecified Qualified Code(s): D72.829 - Elevated white blood cell count, unspecified (3) Diabetes Current Visit: Yes Status: Chronic Assessment and plan: Consult nutrition/microcomputer support specialist for PEG tube management Monitor FS q4-Q6 for now Qualifiers: Diabetes mellitus type: type 1 Diabetes mellitus complication status: with unspecified complications Qualified Code(s): E10.8 - Type 1 diabetes mellitus with unspecified complications (4) Hypertension Current Visit: Yes Status: Chronic Assessment and plan: Continue home meds Qualifiers: Hypertension type: essential hypertension Qualified Code(s): I10 - Essential (primary) hypertension (5) Seizures Current Visit: Yes Status: Chronic Assessment and plan: Continue home meds (6) End stage renal disease Current Visit: Yes Status: Chronic Assessment and plan: Renal following, appreciate input (7) Anemia Current Visit: Yes Status: Chronic Assessment and plan: ACD, management per renal with PAULINA Qualifiers: Anemia type: unspecified type Qualified Code(s): D64.9 - Anemia, unspecified - Subjective Interval history: 56-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, s/p PEG and Trach, [facility] resident with h/o HTN, DM type II, ESRD, seizures Admitted due to incidental finding of leukocytosis and suspicion for pneumonia due to increased trach secretions Patient is seen at bedside He denies new complains Today is day 4 on vanco and zosyn He remains afebrile Leukocytosis has resolved Culture from sputum growing GNR Will discontinue Vanco and continue Zosyn, will await final sputum culture PT/OT to see today Possible discharge tmrw depending on clinical outcome His renal function is stable, nephrology recommendations noted and appreciated - Constitutional Vitals: Temp Pulse Resp BP Pulse Ox 97.4 F L 84 16 120/80 100 01/17/17 07:21 01/17/17 07:21 01/17/17 09:13 01/17/17 07:21 01/17/17 09:13 General appearance: Present: A&O X 2, pleasant. Absent: answers questions appropriately - Head Head exam: Present: atraumatic, normocephalic - Eye Eye exam: Present: PERRL, conjuntiva pink, sclera anicteric Pupils: Present: PERRL - Neck Neck exam general surgery: Present: supple, trachea midline. Absent: lymphadenopathy Additional comments: Trach, minimal secretions - Respiratory Respiratory exam: Present: CTAB. Absent: accessory muscle use, rales, rhonchi, wheezes - Cardiovascular Cardiovascular exam: Present: RRR, +S1, +S2. Absent: diastolic murmur, gallop, rubs, systolic murmur - GI/Abdominal GI/Abdominal exam: Present: normal bowel sounds, soft, no peritoneal signs. Absent: distended, tenderness Additional comments: PEG tube site clean and dry - Extremities Exam Extremities exam: Present: warm, radial pulses palpable and symetrical. Absent : calf tenderness, cyanotic, pedal edema - Neurological Exam Neurological exam: Present: alert, CN II-XII intact, no focal deficits. Absent : pronater drift, facial droop, speech deficit - Skin Skin exam: Present: dry, intact Internal Medicine: Result - Labs CBC & Chem 7: 01/16/17 03:54 01/16/17 03:54 - ABG Interpretation ABG results: PT/INR, D-dimer PT 11.2 Seconds (9.4-12.1) 01/14/17 12:01 - VTE Documentation of Mechanical Device: Graduated compression elastic hosiery Consult Discharge Plan - Plan Referrals: Matheus Vasquez MD [Primary Care Provider] - (Doctor will follow up with patient at the [facility])
[2017-01-17] MEDS ORDERED: Aminoglycoside Consult 1 EACH MC ONE (14:48)
[2017-01-17] MEDS: *HR* Heparin 5,000 UNIT/ML VIAL SQ SCH (17:18)
[2017-01-17] MEDS ORDERED: Vancomycin 1,000 MG in D5% in Water 250 ML IVPB ONE (18:00)
[2017-01-17] MEDS ORDERED: Ipratropium/Albuterol Neb 3 ML ONE (20:45)
[2017-01-17] MEDS: Ipratropium/Albuterol Neb 3 ML IH SCH (20:56)
[2017-01-17] MEDS: Acetylcysteine 10% 2 ML INHSOL IH SCH ×2 (21:17→23:50)
--- NOTE | 2017-01-17 22:12 | Event Note ---
Date of Encounter: 01/17/17 Time of Encounter: 20:45 The patient was noted to be sitting up in bed and trying to get out of bed. At that point his trach mask was being displaced. While he was being assisted by the staff the patient lost consciousness and collapsed falling backwards onto the bed. He was unresponsive for a few seconds and a rapid response team was called. On initial evaluation he was obtunded but sluggishly responsive. His heart was tachycardic S1 and S2 with no murmurs lungs more diminished bilaterally with expiratory wheezes. He had copious secretions from his tracheostomy. During the rapid response and ABG was ordered. I ordered increasing the oxygen delivery by trach mask. We will give her a DuoNeb treatment stat. The patient's oxygen saturation was 86% with a trach mask initially. His current episode was likely secondary to hypoxia and was quickly reversed once the patient received suction and increased oxygen delivery. We will continue to monitor closely and order further studies as necessary.
[2017-01-17] MEDS: Albuterol 2.5 MG/3 ML NEBULIZER IH PRN (23:50)
[2017-01-18] MEDS: Ipratropium/Albuterol Neb 3 ML IH SCH ×3 (04:50→16:53)
[2017-01-18] MEDS: Acetylcysteine 10% 2 ML INHSOL IH SCH ×5 (04:50→20:23)
[2017-01-18 05:00] LABS: Basophils # 0.1 K/mcL (0.0-0.2); Basophils % 1.1 %; Eosinophils # 0.2 K/mcL (0.0-0.6); Eosinophils % 2.8 %; Hemoglobin 8.5 g/dL (12.9-16.9); Immature Granulocytes % 0.5 % (0-4); Lymphocytes # 2.5 K/mcL (0.6-4.6); Lymphocytes % 38.2 %; Mean Corpuscular HGB Conc 30.4 g/dL (31.6-35.5); Mean Corpuscular Hemoglobin 23.6 pg (28.0-33.3); Mean Corpuscular Volume 77.8 fL (83.0-100.0); Monocytes # 0.5 K/mcL (0.0-1.3); Monocytes % 7.2 %; Neutrophils # 3.3 K/mcL (1.6-8.9); Platelet Count 396 K/mcL (140-400); Red Cell Distribution Width 16.8 % (11.5-14.5); Segmented Neutrophils % 50.2 %
[2017-01-18 05:15] LABS: Albumin 2.1 g/dL (3.5-5.0); Albumin/Globulin Ratio 0.4 (1.1-2.2); Bilirubin,Total 0.1 mg/dL (0.2-1.2); Calcium 9.4 mg/dL (8.6-10.8); Globulin 4.8 g/dL (2.4-3.5); Potassium 3.9 mEq/L (3.5-4.5); Total Protein 6.9 g/dL (6.0-8.3)
[2017-01-18 05:47] LABS: Anisocytosis 1+ (Not Present); Microcytosis Present (Not Present); Platelet Estimate Normal (Normal)
[2017-01-18] MEDS: Piperacillin/Tazobactam 3.375 GM in D5% in Water (Mini-Bag+) 100 ML IVPB SCH (07:10)
--- NOTE | 2017-01-18 07:52 | Nephrology Progress Note ---
Date of Encounter: 01/18/17 Time of Encounter: 07:50 - Assessment and Plan (1) End stage renal disease Current Visit: Yes Status: Chronic Patient has a history of end-stage renal disease in the setting of acute kidney injury did fail to improve. His creatinine remains relatively low. He does have low muscle mass. It is difficult to follow his urine output because he is incontinent. Patient refuses a Hammer catheter. The patient's creatinine is stable. It seems as though he has recovered some renal function. I am going to continue to hold his dialysis. If his renal function remained stable within a day or 2 we can probably remove the temporary dialysis catheter and discontinue dialysis altogether. Nephrotoxins should be avoided. (2) Anemia in chronic kidney disease (CKD) Current Visit: Yes Status: Acute (3) Seizures Current Visit: Yes Status: Chronic (4) Leukocytosis Current Visit: Yes Status: Acute Qualifiers: Leukocytosis type: unspecified Qualified Code(s): D72.829 - Elevated white blood cell count, unspecified Subjective Principal diagnosis: ESRD Interval history: Events of last night noted. Patient currently is in no acute distress. He responds to simple questions by nodding his head. From a renal perspective his creatinine is stable. 2 days ago he was 2.03 today 2.12 with a GFR of 40. Urine output is not recorded. Patient is reportedly incontinent of urine. He has not refused placement of a Hammer catheter. Blood cultures remain negative. Sputum is growing Pseudomonas. Objective - Vital Signs Vital signs: Vital Signs Temp Pulse Resp BP Pulse Ox 01/18/17 04:50 17 100 01/18/17 04:40 98.1 F 88 18 163/88 100 01/17/17 23:51 17 99 01/17/17 23:44 97.7 F 85 18 142/81 100 01/17/17 21:18 19 100 01/17/17 20:59 100 01/17/17 20:58 100 01/17/17 20:56 22 100 01/17/17 18:33 98.4 F 85 16 154/80 97 01/17/17 12:06 98.4 F 78 20 112/70 100 01/17/17 09:13 16 100 Intake and Output 01/17/17 01/17/17 01/18/17 15:59 23:59 07:59 Intake Total 250 / 250 400 / 400 150 / 150 Balance 250 / 250 400 / 400 150 / 150 Intake: IV Fluids 100 / 100 100 / 100 Zosyn 3.375 GM In 100 / 100 100 / 100 Dextrose 5% (Minibag+) 100 ML 100 ML @ 25 mls/hr IVPB Q12H [facility] Rx#: [id number] Free Water Intake Amount 150 / 150 300 / 300 150 / 150 Other: Weight 59 kg Blood Glucose* 179 195 Patient Weight 01/18/17 23:59 Weight 59 kg - General Appearance Exam: Patient is in no acute distress. Trach collar is in place. Lungs coarse breath sounds. Heart regular rate and rhythm with a 2/6 talk ejection murmur. Abdomen is benign. PEG tube is in place. There is no peripheral edema. There is a temporary dialysis catheter in the right internal jugular vein. - Lab 01/18/17 04:50 01/18/17 04:50 Most recent lab results Calcium 9.4 mg/dL (8.6-10.8) 01/18/17 04:50 Phosphorus 2.6 mg/dL (2.3-4.7) 01/16/17 03:54 Magnesium 1.8 mg/dL (1.6-2.6) 01/15/17 03:40 - VTE Documentation of Mechanical Device: Graduated compression elastic hosiery Consult Discharge Plan - Plan Referrals: Matheus Vasquez MD [Primary Care Provider] - (Doctor will follow up with patient at the [facility])
[2017-01-18] MEDS: Budesonide Neb 0.5 MG/2 ML IH SCH ×2 (08:08→20:23)
[2017-01-18] MEDS: Insulin LISPRO 300 UNITS/3 ML VIAL SQ SCH ×3 (08:12→17:22)
[2017-01-18] MEDS: *HR* Heparin 5,000 UNIT/ML VIAL SQ SCH ×2 (08:13→17:22)
[2017-01-18] MEDS: Renal Vitamin 1 MG CAPSULE PO SCH (08:16)
[2017-01-18] MEDS: GuaiFENesin Liq 200 MG/10 ML UDC GTUBE SCH ×2 (08:16→17:14)
[2017-01-18] MEDS: levETIRAcetam 500 MG/5 ML UDC GTUBE SCH ×2 (08:18→21:50)
[2017-01-18] MEDS: Albuterol 2.5 MG/3 ML NEBULIZER IH PRN ×2 (11:00→20:23)
--- NOTE | 2017-01-18 12:43 | Internal Med Progress Note ---
Date of Encounter: 01/18/17 Time of Encounter: 12:42 - Assessment and plan (1) SIRS (systemic inflammatory response syndrome) Current Visit: Yes Status: Acute Assessment and plan: Secondary to bronchitis, as patient has no pneumonia on Xray but trach secretions Pseudomonas species Leukocytosis resolved as patient is currently responding appropriately to abx therapy Will continue Levaquin for a total of ten days (Day 5/10) (2) Leukocytosis Current Visit: Yes Status: Acute Assessment and plan: as above Qualifiers: Leukocytosis type: unspecified Qualified Code(s): D72.829 - Elevated white blood cell count, unspecified (3) Diabetes Current Visit: Yes Status: Acute Assessment and plan: Will restart home dose of Levemir continue ss insulin algorithm monitor FS and BG Qualifiers: Diabetes mellitus type: type 1 Diabetes mellitus complication status: with unspecified complications Qualified Code(s): E10.8 - Type 1 diabetes mellitus with unspecified complications (4) Hypertension Current Visit: Yes Status: Chronic Assessment and plan: BP within acceptable range Continue home meds Qualifiers: Hypertension type: essential hypertension Qualified Code(s): I10 - Essential (primary) hypertension (5) Anemia Current Visit: Yes Status: Chronic Assessment and plan: Anemia of chronic disease management per renal with PAULINA Qualifiers: Anemia type: unspecified type Qualified Code(s): D64.9 - Anemia, unspecified (6) End stage renal disease Current Visit: Yes Status: Chronic Assessment and plan: Renal following, appreciate input (7) DVT prophylaxis Current Visit: Yes Status: Acute Assessment and plan: Heparin SQ Discharge planning initiated, awaiting preauthorization from insurance and SNF placement - Subjective Interval history: Patient seen and examined at bedside. Resting in bed and denies any complains at this time. Underwent speech therapy eval and Modified barium swallow. As per speech therapy evaluation, honey thick liquids and mechanically altered diet was recommended will start PO diet patient has history of anoxic encephalopathy due to which he was initially trached and PEGed however at this time his mental status is AAO x 3 and he expresses interest in taking PO intake. Will start the above recommended diet and closely monitor for aspiration. - Constitutional Vitals: Temp Pulse Resp BP Pulse Ox 98.1 F 83 20 112/67 100 01/18/17 11:09 01/18/17 11:09 01/18/17 11:09 01/18/17 11:09 01/18/17 11:09 General appearance: Present: A&O X 3, pleasant, no acute distress. Absent: answers questions appropriately - Head Head exam: Present: atraumatic, normocephalic - Respiratory Respiratory exam: Absent: respiratory distress, wheezes (trached) - Cardiovascular Cardiovascular exam: Present: RRR, +S1, +S2 - GI/Abdominal GI/Abdominal exam: Present: normal bowel sounds, soft, no peritoneal signs. Absent: distended, tenderness Additional comments: PEG - Extremities Exam Extremities exam: Present: warm, radial pulses palpable and symetrical ( bilateral LE calicaphylaxis ). Absent: pedal edema - Neurological Exam Neurological exam: Present: alert - Psychiatric Psychiatric exam: Present: normal affect, normal mood Internal Medicine: Result - Labs CBC & Chem 7: 01/18/17 04:50 01/18/17 04:50 Labs: Short CBC 01/18/17 Range/Units 04:50 WBC 6.5 (4.3-11.1) K/mcL Hgb 8.5 L (12.9-16.9) g/dL Hct 28.0 L (37.5-50.1) % Plt Count 396 (140-400) K/mcL Neutrophils # 3.3 (1.6-8.9) K/mcL BMP 01/18/17 04:50 Sodium 139 Potassium 3.9 Chloride 100 Carbon Dioxide 29 BUN 36 H Creatinine 2.12 H Glucose 311 H Calcium 9.4 Liver Function 01/18/17 Range/Units 04:50 Total Bilirubin 0.1 L (0.2-1.2) mg/dL AST 19 (5-34) Units/L ALT 15 (0-55) Units/L Alkaline Phosphatase 112 (38-126) Units/L Albumin 2.1 L (3.5-5.0) g/dL - ABG Interpretation ABG results: PT/INR, D-dimer PT 11.2 Seconds (9.4-12.1) 01/14/17 12:01 - VTE Documentation of Mechanical Device: Graduated compression elastic hosiery Consult Discharge Plan - Plan Referrals: Matheus Vasquez MD [Primary Care Provider] - (Doctor will follow up with patient at the [facility])
[2017-01-18] MEDS ORDERED: Insulin DETEMIR 100 UNIT/ML X5UNITS SQ ONE (13:00)
[2017-01-18] MEDS ORDERED: Levofloxacin 750 MG/150 ML 750 MG/150 ML BAG IVPB SCH (13:00)
[2017-01-19] MEDS: GuaiFENesin Liq 200 MG/10 ML UDC GTUBE SCH ×3 (00:45→17:06)
[2017-01-19] MEDS: Insulin LISPRO 300 UNITS/3 ML VIAL SQ SCH ×5 (01:55→12:30)
[2017-01-19] MEDS: Ipratropium/Albuterol Neb 3 ML IH SCH ×4 (01:56→15:39)
[2017-01-19] MEDS: Acetylcysteine 10% 2 ML INHSOL IH SCH ×5 (01:56→15:39)
[2017-01-19 04:23] LABS: Basophils % 0.4 %; Eosinophils # 0.2 K/mcL (0.0-0.6); Eosinophils % 2.1 %; Hematocrit 27.8 % (37.5-50.1); Hemoglobin 8.3 g/dL (12.9-16.9); Immature Granulocytes % 0.5 % (0-4); Lymphocytes # 2.2 K/mcL (0.6-4.6); Lymphocytes % 19.3 %; Mean Corpuscular HGB Conc 29.9 g/dL (31.6-35.5); Mean Corpuscular Hemoglobin 23.3 pg (28.0-33.3); Mean Corpuscular Volume 78.1 fL (83.0-100.0); Mean Platelet Volume 10.3 fL (9.4-12.4); Monocytes # 0.7 K/mcL (0.0-1.3); Monocytes % 5.7 %; Neutrophils # 8.2 K/mcL (1.6-8.9); Platelet Count 413 K/mcL (140-400); Red Blood Count 3.56 M/mcL (4.19-5.50); Red Cell Distribution Width 17.2 % (11.5-14.5)
[2017-01-19 04:27] LABS: Basophils # 0.1 K/mcL (0.0-0.2)
[2017-01-19 04:51] LABS: Albumin/Globulin Ratio 0.4 (1.1-2.2); Bilirubin,Total 0.1 mg/dL (0.2-1.2); Globulin 4.7 g/dL (2.4-3.5); Magnesium 1.5 mg/dL (1.6-2.6); Phosphorous 3.5 mg/dL (2.3-4.7); Potassium 3.7 mEq/L (3.5-4.5); Total Protein 6.7 g/dL (6.0-8.3)
[2017-01-19] MEDS: *HR* Heparin 5,000 UNIT/ML VIAL SQ SCH (06:07)
[2017-01-19] MEDS ORDERED: Magnesium Sulfate 1 GM in D5% in Water 100 ML IVPB ONE (07:58)
[2017-01-19] MEDS: Budesonide Neb 0.5 MG/2 ML IH SCH (08:14)
--- NOTE | 2017-01-19 08:15 | Nephrology Progress Note ---
Date of Encounter: 01/19/17 Time of Encounter: 08:13 - Assessment and Plan (1) End stage renal disease Current Visit: Yes Status: Chronic Patient has a history of end-stage renal disease in the setting of acute kidney injury did fail to improve. His creatinine remains relatively low. He does have low muscle mass. It is difficult to follow his urine output because he is incontinent. Patient refuses a Hammer catheter. The patient's creatinine remained stable. Today creatinine is 2.08 it was 2.12 yesterday. GFR is 40. I do not feel the patient requires dialysis. I am going to have a temporary dialysis catheter removed. We will start Aranesp for his anemia. (2) Anemia in chronic kidney disease (CKD) Current Visit: Yes Status: Acute (3) Seizures Current Visit: Yes Status: Chronic (4) Leukocytosis Current Visit: Yes Status: Acute Qualifiers: Leukocytosis type: unspecified Qualified Code(s): D72.829 - Elevated white blood cell count, unspecified Subjective Principal diagnosis: ESRD Interval history: Patient is alert. He is eating breakfast. He is in no acute distress. He nods to questions. Renal function remained stable. Urine output not recorded because of urinary incontinence. Objective - Vital Signs Vital signs: Vital Signs Temp Pulse Resp BP Pulse Ox 01/19/17 08:08 99.0 F 83 16 140/74 100 01/19/17 03:59 98.2 F 88 18 147/80 100 01/19/17 03:50 18 100 01/19/17 01:42 100 01/19/17 01:12 97.6 F 81 15 161/81 100 01/18/17 20:23 18 100 01/18/17 19:00 98.0 F 82 18 161/91 100 01/18/17 16:53 16 100 01/18/17 16:27 97.5 F L 86 20 151/83 100 01/18/17 14:07 83 20 112/67 100 01/18/17 11:09 98.1 F 83 20 112/67 100 01/18/17 11:00 16 100 Intake and Output 01/18/17 01/19/17 01/19/17 23:59 07:59 15:59 Intake Total 150 / 150 690 / 690 Balance 150 / 150 690 / 690 Intake: Oral 240 / 240 Free Water Intake Amount 150 / 150 450 / 450 Other: Stool Size Moderate Stool Consistency loose soft Stool Characteristics Normal for Patient Stool Color Green # Urine Diapers 1 # Bowel Movements 1 Weight 62 kg Blood Glucose* 175 169 Patient Weight 01/19/17 23:59 Weight 62 kg - General Appearance Exam: Patient is alert and oriented. He is in no acute distress. Lungs diminished breath sounds. Trach collar is in place. Heart regular rate and rhythm. Abdomen is benign. PEG tube is in place. There is no peripheral edema. There is a temporary dialysis catheter in the right internal jugular vein. - Lab 01/19/17 03:58 01/19/17 03:58 Most recent lab results Calcium 9.0 mg/dL (8.6-10.8) 01/19/17 03:58 Phosphorus 3.5 mg/dL (2.3-4.7) 01/19/17 03:58 Magnesium 1.5 mg/dL (1.6-2.6) L 01/19/17 03:58 - VTE Documentation of Mechanical Device: Graduated compression elastic hosiery Consult Discharge Plan - Plan Referrals: Matheus Vasquez MD [Primary Care Provider] - (Doctor will follow up with patient at the [facility])
[2017-01-19] MEDS: Renal Vitamin 1 MG CAPSULE PO SCH (08:18)
[2017-01-19] MEDS ORDERED: Ferumoxytol 510 MG in 0.9 % Sodium Chloride 100 ML IVPB ONE (08:18)
[2017-01-19] MEDS: levETIRAcetam 500 MG/5 ML UDC GTUBE SCH (08:18)
--- NOTE | 2017-01-19 15:44 | Discharge Summary ---
Date of Encounter: 01/19/17 Time of Encounter: 15:41 - Discharge Diagnosis (1) SIRS (systemic inflammatory response syndrome) Priority: Primary Status: Resolved (2) Leukocytosis Priority: Secondary Status: Acute Qualifiers: Leukocytosis type: unspecified Qualified Code(s): D72.829 - Elevated white blood cell count, unspecified (3) Diabetes Priority: Secondary Status: Chronic Qualifiers: Diabetes mellitus type: type 1 Diabetes mellitus complication status: with unspecified complications Qualified Code(s): E10.8 - Type 1 diabetes mellitus with unspecified complications (4) Hypertension Priority: Secondary Status: Chronic Qualifiers: Hypertension type: essential hypertension Qualified Code(s): I10 - Essential (primary) hypertension (5) Anemia Priority: Secondary Status: Chronic Qualifiers: Anemia type: unspecified type Qualified Code(s): D64.9 - Anemia, unspecified (6) End stage renal disease Priority: Secondary Status: Chronic (7) DVT prophylaxis Priority: Secondary Status: Acute - Discharge Medications Prescriptions: Levofloxacin [Levaquin] 750 mg PO Q48H #2 tablet Home Medications: Acetaminophen [Tylenol] 650 mg GTUBE Q6HR PRN 01/06/17 [History] Budesonide Neb [Pulmicort Neb] 0.5 mg IH BIDR 01/06/17 [History] Carvedilol 12.5 mg GTUBE BID 01/06/17 [History] Ergocalciferol (VITAMIN D2) [Vitamin D2] 50,000 unit GTUBE TH 01/06/17 [History] GuaiFENesin Liq [Robitussin Liq] 200 mg GTUBE Q8H 01/06/17 [History] Insulin Glargine [Lantus] 10 units SQ HS 01/06/17 [History] Insulin Human Regular [HumuLIN R] 2 units SQ Q6H 01/06/17 [History] LORazepam [Ativan] 0.5 mg PO Q8H PRN 01/06/17 [History] Ondansetron HCl 4 mg GTUBE Q6H PRN 01/06/17 [History] Quetiapine Fumarate [Seroquel] 50 mg GTUBE HS 01/06/17 [History] B Complex C No.10/Folic Acid [Nephronex Liquid] 900 mcg GTUBE DAILY 01/14/17 [ History] LORazepam [Ativan] 0.5 mg GTUBE Q8H PRN 01/14/17 [History] LevETIRAcetam [Keppra] 500 mg GTUBE BID 01/14/17 [History] Nut.tx.impaired Renal Fxn,Soy [Novasource Renal 2 Jose] 237 ml GTUBE QID [History] Oxygen 2 l NS AD 01/14/17 [History] Albuterol Neb [Proventil Neb] 2.5 mg IH Q2H PRN #0 inhsol 01/19/17 [Rx] Darbepoetin [Aranesp] 60 mcg SQ QWEEK syringe 01/19/17 [Rx] Ipratropium/Albuterol Neb [Duoneb] 3 ml IH [id number] inhsol 01/19/17 [Rx] Levofloxacin [Levaquin] 750 mg PO Q48H #2 tablet 01/19/17 [Rx] Renal Vitamin [Renal Caps Softgel] 1 mg PO DAILY capsule 01/19/17 [Rx] Allergies/Adverse Reactions: Allergies No Known Allergies Allergy (Verified 01/06/17 01:02) Date of admission: 01/14/17 15:51 Primary care physician: Matheus Vasquez MD Consults: 01/14/17 16:17 Consult to Proposal Engineer [CONS] Routine Reason for SW Consult: pt is from [place], has trac and feeding tube 01/14/17 17:15 Consult to Nephrology [CONS] Routine Consulting Provider: Kidney & HTN Spclst BELIKS Reason for Consult: Stage IV chronic kidney disease, placement of temporary dialysis catheter Call Completed: Yes 01/15/17 08:45 Consult to Dialysis [CONS] ONCE 01/15/17 09:15 Consult to Dialysis [CONS] ONCE 01/15/17 09:28 Consult to Nutrition [CONS] Routine Comment: PEG tube feed Consulting Provider: NUTRITION Reason for Dietary Consult: Other 01/17/17 09:40 Consult to Occupational Therapy [CONS] Routine Comment: Evaluate, develop and implement POC Consult to Physical Therapy [CONS] Routine Comment: Evaluate, develop and implement POC Discharging clinician: Maggi Stroud Anticipated date of discharge: 01/19/17 - Patient Status Disposition: Transfer SNF Condition: Good Functional capacity at discharge: uses cane/walker Overall status at discharge: patient is back to baseline - Discharge Instructions Follow Up With: Matheus Vasquez MD [Primary Care Provider] - (Doctor will follow up with patient at the [facility]) Additional Instructions: Please follow up with your primary care physician within one week after your discharge from the hospital. Please follow up with your data solutions architect within five within 5 days after your discharge from the hospital. Please continue Levofloxacin for two more doses. Please resume all your other home medications as prescribed by your primary care physician. Please continue mechanically altered diet with honey thickened liquids. Maintain aspiration precautions. - Diet and Activity Activity: as per physical therapy Diet: other (mechanically altered diet with honey thickened liquids) Hospital course: Mr. Gonzalez is a 56 year old male with PMH of DM, HTN, ESRD, Seizure dx, anoxic encephalopathy s/p tracheostomy and PEG tube placement who was admitted for sepsis likely secondary to bacterial bronchitis. He was started on empiric IV abx and therapy was de-escalated as per his culture reports. His mental status has been AAO x 3 throughout the course of his hospitalization. Patient requested initiation of PO intake for which speech therapy evaluation was requested. Patient underwent modified barium swallow study and was started on mechanically altered diet with honey thickened liquids. Patient has been tolerating PO diet well. Physical therapy eval was requested and SNF was recommended. Patient is hemodynamically stable and will be discharged to SNF today. He was also followed by his primary data solutions architect throughout the course of his hospitalization and no dialysis was recommended. Patient demonstrates understanding of his diagnosis and agrees with discharge care and plan. - Time Spent with Patient Total time spent providing and/or coordinating discharge services: Greater than 30 minutes - Constitutional Vitals: Temp Pulse Resp BP Pulse Ox 98.3 F 83 16 118/68 100 01/19/17 12:18 01/19/17 12:18 01/19/17 12:18 01/19/17 12:18 01/19/17 12:18 General appearance: Present: A&O X 3, pleasant, no acute distress - Head Head exam: Present: atraumatic, normocephalic - Neck Additional comments: tracheostomy - Respiratory Respiratory exam: Present: CTAB. Absent: accessory muscle use, rales, rhonchi, wheezes - Cardiovascular Cardiovascular exam: Present: RRR, +S1, +S2. Absent: diastolic murmur, gallop, rubs, systolic murmur - GI/Abdominal GI/Abdominal exam: Present: normal bowel sounds, soft, no peritoneal signs. Absent: distended, tenderness - Extremities Exam Extremities exam: Present: warm, radial pulses palpable and symetrical. Absent : calf tenderness, cyanotic, pedal edema - Neurological Exam Neurological exam: Present: alert, oriented X3 - VTE Documentation of Mechanical Device: Graduated compression elastic hosiery
[2017-01-19 15:52] VITALS: BP 125/81
--- NOTE | 2017-01-19 15:54 | Physician Discharge Referral ---
ExtendedCare Referral Info Transfer To: ECF Provider in Charge after Transfer: PCP - Diagnosis (1) SIRS (systemic inflammatory response syndrome) Priority: Primary Status: Resolved (2) Leukocytosis Priority: Secondary Status: Acute (3) Diabetes Priority: Secondary Status: Chronic (4) Hypertension Priority: Secondary Status: Chronic (5) Anemia Priority: Secondary Status: Chronic (6) End stage renal disease Priority: Secondary Status: Chronic (7) DVT prophylaxis Priority: Secondary Status: Acute - Transfer Medications Prescriptions: Levofloxacin [Levaquin] 750 mg PO Q48H #2 tablet Home Medications: Acetaminophen [Tylenol] 650 mg GTUBE Q6HR PRN 01/06/17 [History] Budesonide Neb [Pulmicort Neb] 0.5 mg IH BIDR 01/06/17 [History] Carvedilol 12.5 mg GTUBE BID 01/06/17 [History] Ergocalciferol (VITAMIN D2) [Vitamin D2] 50,000 unit GTUBE TH 01/06/17 [History] GuaiFENesin Liq [Robitussin Liq] 200 mg GTUBE Q8H 01/06/17 [History] Insulin Glargine [Lantus] 10 units SQ HS 01/06/17 [History] Insulin Human Regular [HumuLIN R] 2 units SQ Q6H 01/06/17 [History] LORazepam [Ativan] 0.5 mg PO Q8H PRN 01/06/17 [History] Ondansetron HCl 4 mg GTUBE Q6H PRN 01/06/17 [History] Quetiapine Fumarate [Seroquel] 50 mg GTUBE HS 01/06/17 [History] B Complex C No.10/Folic Acid [Nephronex Liquid] 900 mcg GTUBE DAILY 01/14/17 [ History] LORazepam [Ativan] 0.5 mg GTUBE Q8H PRN 01/14/17 [History] LevETIRAcetam [Keppra] 500 mg GTUBE BID 01/14/17 [History] Nut.tx.impaired Renal Fxn,Soy [Novasource Renal 2 Jose] 237 ml GTUBE QID [History] Oxygen 2 l NS AD 01/14/17 [History] Albuterol Neb [Proventil Neb] 2.5 mg IH Q2H PRN #0 inhsol 01/19/17 [Rx] Darbepoetin [Aranesp] 60 mcg SQ QWEEK syringe 01/19/17 [Rx] Ipratropium/Albuterol Neb [Duoneb] 3 ml IH [id number] inhsol 01/19/17 [Rx] Levofloxacin [Levaquin] 750 mg PO Q48H #2 tablet 01/19/17 [Rx] Renal Vitamin [Renal Caps Softgel] 1 mg PO DAILY capsule 01/19/17 [Rx] Allergies/Adverse Reactions: Allergies No Known Allergies Allergy (Verified 01/06/17 01:02) - Respiratory Orders Smoking Cessation: Smoking cessation has been advised. For more information, call the [employer] Quit Line at 2-352-LZGR-NOW. - Treatments List/Other: Please follow up with your primary care physician within one week after your discharge from the hospital. Please follow up with your strap buckler machine within five within 5 days after your discharge from the hospital. Please continue Levofloxacin for two more doses. Please resume all your other home medications as prescribed by your primary care physician. Please continue mechanically altered diet with honey thickened liquids. Maintain aspiration precautions. - Diet Orders House Supplement per Dietary: mechanically altered diet with honey thickened liquids CERTIFICATION: I certify that the transfer of the above named patient to an Extended Care Facility is necessary for the continuing treatment of the diagnosis listed. The above information is true and accurate reflection of patient's current condition. Confidential - Redisclosure prohibited without a patient's written consent.
[2017-01-19] MEDS ORDERED: Insulin DETEMIR 100 UNIT/ML X5UNITS SQ SCH (21:00)
[2017-01-20] MEDS ORDERED: levoFLOXacin 500 MG TABLET PO SCH (13:00)
== END 2017-01-19 17:30 | DRG 720 ==
LOC: 2ANU 10:57 → EMEROO 10:57 → SUATTDRO 15:51 → 2ANU 15:56
PROVIDERS: ADMIT Nurse Practitioner Family; ATTEND Internal Medicine